=== PATIENT | female | born 1995 | race African-American/Black ===

== ENCOUNTER 2019-08-05 10:23 | Emergency (ER) | payer MEDICAID ==
[~2019-08-05] VITALS: Ht 162.6 cm; Wt 62.6 kg
[2019-08-05 10:27] VITALS: Ht 162.6 cm; Wt 62.6 kg
[2019-08-05 11:21] LABS: BASOPHIL % 0.2 % (0-2); PLATELET COUNT 202 x10^3mcL (130-400); RED CELL DISTRIBUTION WIDTH 13.1 % (11.5-14.5)
[2019-08-05 11:24] LABS: CALCIUM 9.2 mg/dL (8.5-10.1); CARBON DIOXIDE 27.3 mmol/L (21-32); CHLORIDE SERUM 102 mmol/L (98-107); CREATININE SERUM 0.8 mg/dL (0.6-1.0); GFR1 > 60 mL/min; GLUCOSE SERUM 89 mg/dL (74-106); POTASSIUM SERUM 3.6 mmol/L (3.5-5.1); SODIUM SERUM 139 mmol/L (136-145)
[2019-08-05 11:30] LABS: ALBUMIN 3.5 g/dL (3.4-5.0); ALKALINE PHOSPHATASE 39 U/L (46-116); ALT/SGPT 35 U/L (14-59); AST/SGOT 30 U/L (15-37); TOTAL PROTEIN, SERUM 6.7 g/dL (6.4-8.2)
[2019-08-05 11:45] LABS: BILIRUBIN TOTAL 0.3 mg/dL (0.20-1.00)
[2019-08-05 13:15] VITALS: BP 113/77
[2019-08-05 14:10] LABS: microscopic required? YES; urine erythrocyte 3+ (NEGATIVE)
== END 2019-08-05 13:15 | disposition home or self-care (01) ==
LOC: ED 10:23
PROVIDERS: Specialist
DX: O03.9 Complete or unspecified spontaneous abortion without complication (principal); Z3A.08 8 weeks gestation of pregnancy
CPT/HCPCS: J2270; J2405; J7030; Q0092

== ENCOUNTER 2019-08-26 11:43 | Emergency (ER) | payer MEDICAID ==
[~2019-08-26] VITALS: Ht 162.6 cm; Wt 64.4 kg
[2019-08-26 11:52] VITALS: Ht 162.6 cm; Wt 64.4 kg
[2019-08-26 14:25] VITALS: BP 116/70
== END 2019-08-26 14:25 | disposition home or self-care (01) ==
LOC: ED 11:43
DX: M51.37 Other intervertebral disc degeneration, lumbosacral region (principal); L21.9 Seborrheic dermatitis, unspecified

== ENCOUNTER 2019-11-11 03:00 | Emergency (ER) | payer SELFPAY ==
[~2019-11-11] VITALS: Ht 162.6 cm; Wt 61.8 kg
[2019-11-11 03:04] VITALS: Ht 162.6 cm; Wt 61.8 kg
[2019-11-11 03:53] LABS: BASOPHIL % 0.3 % (0-2); PLATELET COUNT 236 x10^3mcL (130-400); RED CELL DISTRIBUTION WIDTH 13.6 % (11.5-14.5)
[2019-11-11 04:28] LABS: CALCIUM 9.4 mg/dL (8.5-10.1); CARBON DIOXIDE 23.7 mmol/L (21-32); CHLORIDE SERUM 106 mmol/L (98-107); CREATININE SERUM 0.9 mg/dL (0.6-1.0); GFR1 > 60 mL/min; GLUCOSE SERUM 85 mg/dL (74-106); POTASSIUM SERUM 4.3 mmol/L (3.5-5.1); SODIUM SERUM 145 mmol/L (136-145)
[2019-11-11 04:32] LABS: ALBUMIN 4.4 g/dL (3.4-5.0); ALKALINE PHOSPHATASE 39 U/L (46-116); ALT/SGPT 27 U/L (14-59); AST/SGOT 31 U/L (15-37); BILIRUBIN TOTAL 0.39 mg/dL (0.20-1.00); LIPASE 85 IU/L (73-393); TOTAL PROTEIN, SERUM 7.4 g/dL (6.4-8.2)
[2019-11-11 07:15] VITALS: BP 104/70
== END 2019-11-11 07:15 | disposition home or self-care (01) ==
LOC: ED 03:00
PROVIDERS: Emergency Medicine
DX: K52.9 Noninfective gastroenteritis and colitis, unspecified (principal); S01.01XA Laceration without foreign body of scalp, initial encounter; X58.XXXA Exposure to other specified factors, initial encounter; Y93.89 Activity, other specified; Y92.89 Other specified places as the place of occurrence of the external cause; Y99.8 Other external cause status
CPT/HCPCS: J2270; J2405; J7030